=== PATIENT | female | born 1950 | race African-American/Black ===

== ENCOUNTER 2016-10-02 16:29 | Emergency (ER) | payer OTHER ==
[~2016-10-02] VITALS: Ht 154.9 cm; Wt 77.1 kg
[2016-10-02] MEDS ORDERED: NAPROSYN500 MG PO (18:33)
[2016-10-02] MEDS ORDERED: MIRALAX17 GM PO (18:33)
[2016-10-02 19:10] VITALS: BP 148/83
== END 2016-10-02 19:10 | disposition home or self-care (01) ==
LOC: ER 16:29
DX: S09.90XA Unspecified injury of head, initial encounter (principal); M25.511 Pain in right shoulder; M25.512 Pain in left shoulder; M25.561 Pain in right knee; M54.9 Dorsalgia, unspecified; E11.9 Type 2 diabetes mellitus without complications; Z88.1 Allergy status to other antibiotic agents; Z88.8 Allergy status to other drugs, medicaments and biological substances; W07.XXXA Fall from chair, initial encounter; Y93.89 Activity, other specified; Y92.89 Other specified places as the place of occurrence of the external cause; Y99.9 Unspecified external cause status

== ENCOUNTER 2016-11-19 16:06 | Emergency (ER) | payer OTHER ==
[~2016-11-19] VITALS: Ht 154.9 cm; Wt 81.7 kg
[~2016-11-19 16:06] MED LIST: MIRALAX17 GM PO; NAPROSYN500 MG PO
[2016-11-19] MEDS ORDERED: METFORMIN HCL1000 MG PO (16:40)
[2016-11-19] MEDS ORDERED: SINGULAIR 10 MG10 M1 PO (16:41)
[2016-11-19] MEDS ORDERED: AMARYL2 MG PO (16:41)
[2016-11-19] MEDS ORDERED: XANAX 0.25 MG0.25 MG PO (16:42)
[2016-11-19] MEDS ORDERED: LANSOPRAZOLE30 MG PO (16:42)
[2016-11-19] MEDS ORDERED: JANUVIA100 MG PO (16:43)
[2016-11-19] MEDS ORDERED: VENLAFAXINE HC150 MG PO (16:43)
[2016-11-19] MEDS ORDERED: VALSARTAN-HCTZ1 EAC3 PO (16:44)
[2016-11-19 18:22] VITALS: BP 160/81
[2016-11-19] MEDS ORDERED: BACLOFEN 10MG T10 MG PO (19:33)
[2016-11-19] MEDS ORDERED: APAP500 PO (19:33)
== END 2016-11-19 20:38 | disposition home or self-care (01) ==
LOC: ER 16:06
DX: S09.90XA Unspecified injury of head, initial encounter (principal); M54.5 Low back pain; M25.511 Pain in right shoulder; M25.561 Pain in right knee; E11.9 Type 2 diabetes mellitus without complications; Z88.1 Allergy status to other antibiotic agents; Z88.8 Allergy status to other drugs, medicaments and biological substances; W10.8XXA Fall (on) (from) other stairs and steps, initial encounter; Y93.89 Activity, other specified; Y92.89 Other specified places as the place of occurrence of the external cause; Y99.8 Other external cause status

== ENCOUNTER 2016-12-28 15:27 | Emergency (ER) | payer OTHER ==
[~2016-12-28] VITALS: Ht 152.4 cm; Wt 81.7 kg
[~2016-12-28 15:27] MED LIST changes: +AMARYL2 MG PO; +APAP500 PO; +BACLOFEN 10MG T10 MG PO; +CLONIDINE HCL0.1 MG PO; +COQ-10100 MG PO; +DILT-XR180 MG PO; +DUREZOL5 ML OP; +HUMULIN N100 UNIT/1 SQ; +JANUVIA100 MG PO; +KETOROLAC TROMET5 ML OP; +LANSOPRAZOLE30 MG PO; +METFORMIN HCL1000 MG PO; +NAPROXEN250 MG PO; +SENOKOT-S1 TA1 PO; +SINGULAIR 10 MG10 M1 PO; +TRAMADOL 50 MG50 MG PO; +VALSARTAN-HCTZ1 EAC3 PO; +VENLAFAXINE HC100 MG PO; +VENLAFAXINE HC150 MG PO; +VITAMIN D1000 UNI1 PO; +VITAMIN D3400 UNIT PO; +XANAX 0.25 MG0.25 MG PO
[2016-12-28 16:36] LABS: ABSOLUTE NEUTROPHILS 4.7 thou/uL (1.4-8.2); BASOPHILS 0.5 % (0.0-2.0); EOSINOPHILS 0.7 % (0.0-3.0); HEMATOCRIT 34.4 % (37.0-47.0); HEMOGLOBIN 11.8 gm/dL (12.0-15.0); LYMPHOCYTES 40.3 % (24.0-44.0); MCH 31.2 pg (26.0-34.0); MCHC 34.3 g/dL (28.0-37.0); MCV 90.9 fL (80.0-100.0); MONOCYTES 5.6 % (1.0-8.0); PLATELET COUNT 239 thou/uL (150-400); POLYS 52.9 % (36.0-66.0); RBC 3.79 mil/uL (4.20-5.00); RDW 12.5 % (10.5-14.5); WBC 8.9 thou/uL (4.0-11.0)
[2016-12-28 16:37] LABS: MANUAL DIFF NO
[2016-12-28 16:45] LABS: CALCIUM 10.2 mg/dL (8.5-10.1); CREATININE 0.9 mg/dL (0.6-1.0); POTASSIUM 3.6 mmol/L (3.5-5.1)
[2016-12-28] MEDS ORDERED: IBUPROFEN 600600 M1 PO (18:18)
[2016-12-28] MEDS ORDERED: ONDANSETRON HCL4 M2 PO (18:30)
[2016-12-28 19:12] VITALS: BP 148/90
== END 2016-12-28 19:14 | disposition home or self-care (01) ==
LOC: ER 15:27
PROVIDERS: Nurse Practitioner
DX: R51 Headache (principal); R11.2 Nausea with vomiting, unspecified; R10.9 Unspecified abdominal pain; E11.9 Type 2 diabetes mellitus without complications; Z88.1 Allergy status to other antibiotic agents; Z88.8 Allergy status to other drugs, medicaments and biological substances